=== PATIENT | female | born 1990 | race Caucasian/White ===

== ENCOUNTER 2016-06-03 07:01 | Day surgery (SDC) | payer OTHER ==
[2016-05-31 10:33] LABS: ASCORBIC ACID (UR NOT ORDER) NEG (NEG); BILIRUBIN, URINE NEGATIVE (NEG); KETONE, URINE NEGATIVE (NEG); LEUKOCYTE ESTERASE(NOT OR NEG (NEG); WBC (NOT ORDERED) (RFLEX) 10 (0-5)
--- NOTE | ~2016-06-03 | OP ---
Record Of Operation [facility] [address] [place]. [address] NAME: MELINDA GRAVES : 86 STATUS : [facility] PAT#: [id number] AGE: 25 ADM/REG DATE : 06/03/16 MR#: [id number] REPORT SERV DATE: 06/03/16 DICTATED BY: Ana SINGH DATE: 06/03/16 REPORT STATUS : Draft TRANSCRIBED BY: SINDYL DATE: 06/03/16 DATE OF PROCEDURE: PREOPERATIVE DIAGNOSIS: Left ureteropelvic junction stone, 9 mm. POSTOPERATIVE DIAGNOSIS: Left ureteropelvic junction stone, 9 mm. PROCEDURE: Left ESWL. SURGEON: Ana Singh M.D. ANESTHESIA: MAC. COMPLICATIONS: None. DRAINS: None. BRIEF HISTORY: Ms. Graves is a 25-year-old white female seen by me last week for the first time in several years with intermittent left flank pain, nausea, and vomiting. She denied fever. A CT KUB showed a 9 mm stone at the UPJ adjacent to L2 on the left. We discussed options and decided to proceed with ESWL. The risks of bleeding, infection, anesthesia, injury to adjacent organs, need for retreatment, or endoscopy were all discussed. There were no unanswered questions. DESCRIPTION OF PROCEDURE: Under excellent MAC anesthesia, the patient was placed supine on the [employer] lithotripsy unit #2. The stone was localized at F2, and a total of 3000 shocks at a power level up to 7.0 were delivered to the stone. The patient tolerated the procedure well and will be discharged as an outpatient with the following instructions. DISCHARGE INSTRUCTIONS: 1. Home today. 2. Continue pain medicine. The patient states she has adequate supplies with that now. 3. Begin Flomax 0.4 mg daily. 4. Follow up in my office in one to two weeks with a KUB and usual precautions. BAYRON/JAKI Ana Singh M.D. / [id number] CC: Ana Singh M.D.
[~2016-06-03 07:01] MED LIST: ADDERALL20 MG PO; PERCOCET 10/3251 TAB PO
== END 2016-06-03 11:40 | disposition home or self-care (01) ==
LOC: SDC 07:01
PROC: 0TF4XZZ Fragmentation in Left Kidney Pelvis, External Approach (ICD-10-PCS; principal; 2016-06-03 09:00)
DX: N20.0 Calculus of kidney (principal); Z87.442 Personal history of urinary calculi; F90.9 Attention-deficit hyperactivity disorder, unspecified type
CPT/HCPCS: 50590; 74000; 81001; 84703; A9270-GY; J3010

== ENCOUNTER 2016-06-07 13:38 | Day surgery (SDC) | payer OTHER ==
--- NOTE | ~2016-06-07 | OP ---
Record Of Operation [facility] [address] [place]. [address] NAME: MELINDA GRAVES : 86 STATUS : [facility]#: [id number] AGE: 25 ADM/REG DATE : 06/07/16 MR#: [id number] REPORT SERV DATE: 06/07/16 DICTATED BY: Ana SINGH DATE: 06/07/16 REPORT STATUS : Draft TRANSCRIBED BY: MODL DATE: 06/07/16 DATE OF PROCEDURE: 06/07/2016 PREOPERATIVE DIAGNOSIS: Multiple left ureteral fragments, status post ESWL with pain. POSTOPERATIVE DIAGNOSIS: Multiple left ureteral fragments, status post ESWL with pain. PROCEDURE: Cystoscopy, left retrograde pyelography, ureteroscopy, laser lithotripsy, basket stone extraction, double-J stent placement. SURGEON: Ana Singh M.D. ANESTHESIA: General. COMPLICATIONS: None. DRAINS: 7-Nauruan x 24 cm Contour double-J stent (on a string). BRIEF HISTORY: Ms. Graves is a 25-year-old white female with recurrent stone disease who underwent ESWL for a 9 mm proximal stone on 06/03/2016. She came to the office today complaining of intractable pain. She had not passed any fragments. A KUB showed at least two left ureteral fragments, one in the distal ureter, one probably in the mid sacral area. She wanted to proceed with intervention of the risks of bleeding, infection, anesthesia, injury to adjacent organs, need for postoperative stent with stent misery were all discussed. There were no unanswered questions. DESCRIPTION OF PROCEDURE: Under excellent general anesthesia, the patient was prepped and draped in a standard lithotomy position. Cystoscopy was performed with a 30-degree lens, revealed a normal bladder without tumors, stones, or foreign body. An 8-Nauruan cone-tipped catheter was used to perform a left retrograde pyelogram. Confirmed obstruction with filling defects was noted. I inserted an angled glidewire through a 5-Nauruan open-ended catheter up to the level of the renal pelvis with mild difficulty. I then inserted a short rigid ureteroscope and encountered 4 mm stone fragment in the distal ureter. It was removed without difficulty. Several smaller fragments were also removed, but there was a larger fragment in the mid ureter that could not be moved distally. I disengaged it from the basket and then inserted a 200 micron laser fiber, completely fragmented it into passable or extractable pieces. I extracted the larger pieces and sent a set of stones for analysis. There were no significant pieces left in the ureter and some were left in the bladder. I dilutely opacified the collecting system and retrofitted the wire into cystoscope, and placed a 7-Nauruan x 24 cm Contour double-J stent which coiled nicely in the renal pelvis and bladder. I left the string attached and it was affixed to her skin with Mastisol and Tegaderm. I plan to discharge Ms. Graves as an outpatient with the following instructions. DISCHARGE INSTRUCTIONS: 1. Home today. 2. Okay for the patient to remove her stent on 06/10/2016 in the morning. If she has any Record Of Operation [address] [place]. [address] NAME: MELINDA GRAVES : 86 STATUS : [facility] PAT#: [id number] AGE: 25 ADM/REG DATE : 06/07/16 MR#: [id number] REPORT SERV DATE: 06/07/16 DICTATED BY: Ana SINGH DATE: 06/07/16 REPORT STATUS : Draft TRANSCRIBED BY: JAKI DATE: 06/07/16 difficulty, she can call the office. 3. Percocet 5/325 one to two p.o. q.4 hours p.r.n. pain, #20. 4. Pyridium 200 mg one p.o. t.i.d. p.r.n. bladder pain #15 with two refills. If she is doing well, I do not need to see her back in the short term, but would wait three months or so and she can return to review her stone analysis. BAYRON/JAKI Ana Singh M.D. / [id number] CC: Ana Singh M.D.
[2016-06-12 19:24] LABS: STONE COMPOSITION TWO DNR (())
== END 2016-06-07 19:20 | disposition home or self-care (01) ==
LOC: SDC 13:38
PROC: 0TC78ZZ Extirpation of Matter from Left Ureter, Via Natural or Artificial Opening Endoscopic (ICD-10-PCS; 2016-06-07)
PROC: BT1FYZZ Fluoroscopy of Left Kidney, Ureter and Bladder using Other Contrast (ICD-10-PCS; 2016-06-07)
PROC: 0T778DZ Dilation of Left Ureter with Intraluminal Device, Via Natural or Artificial Opening Endoscopic (ICD-10-PCS; principal; 2016-06-07 15:45)
DX: N20.2 Calculus of kidney with calculus of ureter (principal); Z79.899 Other long term (current) drug therapy; Z82.3 Family history of stroke; Z83.3 Family history of diabetes mellitus; Z79.891 Long term (current) use of opiate analgesic
CPT/HCPCS: 74000; 74420; 82365; 84703; A9270-GY; C1758; C1769; C1874; J2175; J2250; J2405; J2710; J3010; Q9967